=== PATIENT | female | born 1995 | race Caucasian/White ===

== ENCOUNTER 2018-09-30 02:05 | Emergency (ER) | payer OTHER ==
[2018-09-30] MEDS ORDERED: LORazepam 1 MG TAB PO ONE ×2 (02:25→04:36)
--- NOTE | 2018-09-30 03:09 | EDPHY ---
H & P Stated Complaint: SOB, sore throat, anxious since 10pm. 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 Patient feels like she cannot get in full breasts. She is able to breathe in an out but feels that she is not getting enough oxygen. Feels somewhat lightheaded. Also complaining of sore throat. It hurts to swallow but she is able swallow. Does not feel like she has any throat swelling. No nausea or vomiting. No chest pain. No cough. Does have a history of mood disorder, only a few days ago she was started on lithium and Risperdal by our psychiatrist.. She has been compliant with her medications. Does have a history of panic attacks in the past but this does not feel the same. ROS: 10 systems were reviewed and were negative except those elements noted in the HPI. PMH: Mood disorder Social History: No smoking, occasional alcohol, no recreational drug use Family History: non-contributory Physical Exam: Gen: Awake, Alert, anxious, tachypneic, satting 100% on room air, HEENT: Nose: no rhinorrhea Eyes: PERRLA, EOMI Mouth: Moist mucosa mild oral pharyngeal erythema, no edema, uvula is midline, no exudate Neck: Supple, no JVD, mild cervical lymphadenopathy, no submandibular swelling. No masses. No soft tissue swelling noted. No voice change. Chest: nontender, lungs clear to auscultation, excellent air movement Heart: S1, S2 normal, no murmur Abd: Soft, non-tender, no guarding Back: no CVA tenderness, no midline tenderness Ext: no edema, non-tender Skin: no rash Neuro: CN II-XII intact, Sensation grossly intact, Strength 5/5 in bilateral upper and lower extremities - Personal History Current Tetanus/Diphtheria Vaccine: Yes Current Tetanus Diphtheria and Acellular Pertussis (TDAP): Yes - Medical/Surgical History Hx Asthma: No Hx Chronic Respiratory Disease: No Hx Diabetes: No Hx Cardiac Disease: No Hx Renal Disease: No Hx Cirrhosis: No Hx Alcoholism: No Hx HIV/AIDS: No Hx Splenectomy or Spleen Trauma: No Other PMH: anemia, depression, mood disorder - Social History Smoking Status: Never smoked Constitutional: Initial Vital Signs Temperature (C) 37.1 C 09/30/18 02:10 Heart Rate 121 H 09/30/18 02:10 Respiratory Rate 22 H 09/30/18 02:10 Blood Pressure 144/88 H 09/30/18 02:10 O2 Sat (%) 99 09/30/18 02:10 O2 Delivery Mode Room Air Allergies/Adverse Reactions: amoxicillin Allergy (Verified 09/30/18 02:07) Penicillins Allergy (Verified 09/30/18 02:07) Home Medications: Medication Instructions Recorded Risperdal 06/06/09 [place] Aspartate [Lithate] 09/30/18 Medical Decision Making ED Course/Re-evaluation: Patient is improved after some Ativan and ibuprofen. Patient has never been hypoxic, has had an oxygen saturation Heart% on room air. No voice changes. No swelling or masses. Symptoms consistent with acute pharyngitis, strep test is negative. Symptoms likely viral. Will discharge with supportive therapy, follow up with primary care. I think her symptoms are likely secondary to medication reaction from her new medications, Risperdal and lithium. She will follow up with her psychiatrist, return for any concerns. Will send her home with an Ativan prepack. She will hold off on her other medications until seen in follow-up. - Data Points Laboratory Results: 09/30/18 09/30/18 Unknown 02:26 Group A Strep Screen NEGATIVE (NEGATIVE) Group A Strep DNA Pending Medications Given: Discontinued Medications Ibuprofen (Motrin) 600 mg PO EDNOW ONE Stop: 09/30/18 03:43 Last Admin: 09/30/18 04:23 Dose: 600 mg Lorazepam (Ativan) 1 mg PO EDNOW ONE Stop: 09/30/18 02:26 Last Admin: 09/30/18 02:29 Dose: 1 mg Lorazepam (Ativan) 1 mg PO EDNOW ONE Stop: 09/30/18 04:37 Last Admin: 09/30/18 04:41 Dose: 1 mg Departure - Departure Disposition: Home, Routine, Self-Care Clinical Impression: Dyspnea, Medication adverse effect Condition: Good Instructions: Dyspnea (ED), Lorazepam (By mouth) Additional Instructions: Follow up with your psychiatrist in next 1-2 days for further evaluation. If your symptoms return you in taken Ativan every 6-8 hours as needed. Return to the emergency department for increasing pain, shortness of breath, difficulty swallowing, or any other concerns. Referrals: Patient,NotPresent [Unknown] - As per Instructions
[2018-09-30] MEDS ORDERED: IBUPROFEN 600 MG TAB PO ONE (03:42)
[2018-09-30 04:26] VITALS: BP 140/79
[2018-09-30] MEDS ORDERED: LORAZEPAM 1 MG PREPACK#4 BTL TAKEHOME ONE (05:04)
== END 2018-09-30 05:28 | disposition home or self-care (01) ==
DX: T88.7XXA Unspecified adverse effect of drug or medicament, initial encounter (principal); F41.9 Anxiety disorder, unspecified; F32.9 Major depressive disorder, single episode, unspecified